=== PATIENT | female | born 1965 | race Caucasian/White ===

== ENCOUNTER 2024-01-22 19:21 | Emergency (ER) | payer SELFPAY ==
[2024-01-22 19:38] VITALS: BP 191/83; PULSE 64; RESP 20; TEMP 98.3; O2SAT 98
[2024-01-22] MEDS ORDERED: ZEMURON IV ONE ×2 (20:00→20:52)
[2024-01-22] MEDS ORDERED: TIOT18CA IH (20:05)
[2024-01-22] MEDS ORDERED: ESOM40CA PO (20:05)
[2024-01-22] MEDS ORDERED: INSU100I13 SQ (20:05)
[2024-01-22] MEDS ORDERED: HYDR200T72 PO (20:05)
[2024-01-22] MEDS ORDERED: SITA50TA PO (20:05)
[2024-01-22] MEDS ORDERED: RIZA10TA97 PO (20:05)
[2024-01-22] MEDS ORDERED: TOPI100T39 PO (20:05)
[2024-01-22] MEDS ORDERED: CEVI30CA7 PO (20:05)
[2024-01-22] MEDS ORDERED: DULO60CA8 PO (20:05)
[2024-01-22] MEDS ORDERED: MELA10TA PO (20:05)
[2024-01-22] MEDS ORDERED: LOSA100T15 PO (20:05)
[2024-01-22] MEDS ORDERED: METH-622 PO (20:05)
[2024-01-22] MEDS ORDERED: GABA600T7 PO (20:05)
[2024-01-22] MEDS ORDERED: LEVO75TA PO (20:05)
[2024-01-22] MEDS ORDERED: ESTR0.5T2 PO (20:05)
[2024-01-22] MEDS ORDERED: VERSED ONE ×2 (20:07→20:16)
[2024-01-22] MEDS ORDERED: SUBLIMAZE 100MCG/2ML ONE (20:07)
[2024-01-22] MEDS ORDERED: CLOP-28 PO (20:07)
[2024-01-22] MEDS ORDERED: METO-237 PO (20:07)
[2024-01-22] MEDS: VERSED IV STA ×3 (20:10→20:23)
[2024-01-22] MEDS: KEPPRA 100 ML IV STA (20:12)
[2024-01-22] MEDS ORDERED: KEPPRA 100 ML IV ONE (20:13)
[2024-01-22] MEDS: SUBLIMAZE 100MCG/2ML IV STA (20:14)
[2024-01-22] MEDS ORDERED: LASIX ONE (20:24)
[2024-01-22] MEDS: LASIX IV STA (20:24)
[2024-01-22 20:25] VITALS: BP 161/121; PULSE 55; RESP 18; O2SAT 98
[2024-01-22 20:40] VITALS: BP 160/97; PULSE 74; RESP 18; O2SAT 100
[2024-01-22] MEDS ORDERED: TRANEXAMIC ACID IV ONE (20:48)
[2024-01-22] MEDS ORDERED: SODIUM CHLORIDE IV ONE (20:48)
[2024-01-22] MEDS: TRANEXAMIC ACID 1,000 MG in NS 100ML 100 ML IV SCH (20:50)
[2024-01-22 20:54] LABS: HEMATOCRIT(ML) 32.8 % (36.0-46.0); HEMOGLOBIN 11.1 g/dL (12.0-15.0); MEAN CORP HGB 33.6 pg (26-34); MEAN CORP HGB CONCENTRATION 33.8 g/dL (33-36.5); MEAN CORP VOLUME 99.4 fL (78-100); RED BLOOD CELL 3.3 10^6/uL (4.00-5.20); RED CELL DISTRIBUTION WIDTH 13.2 % (11.5-14.5); WHITE BLOOD CELL 16.8 10^3/uL (4.5-11.0)
[2024-01-22 21:09] LABS: ALBUMIN(ML) 3.9 g/dL (3.4-5.0); ALBUMIN/GLOBULIN RATIO 1.56; ANION GAP 13.7; BUN/CREATININE RATIO 12.21 (10.0-20.0); CALCIUM 8.8 mg/dL (8.4-10.5); CARBON DIOXIDE 23.7 mmol/L (20.0-32); CREATININE SERUM 1.31 mg/dL (0.59-1.40); EST GFR, NON-AA 41.7 (>/=60); POTASSIUM 4.4 mmol/L (3.6-5.2)
== END 2024-01-22 20:45 | disposition short-term general hospital (02) ==
LOC: ER 19:21
DX: S06.6XAA Traumatic subarachnoid hemorrhage with loss of consciousness status unknown, initial encounter (principal); Z88.0 Allergy status to penicillin; Z88.1 Allergy status to other antibiotic agents; Z88.2 Allergy status to sulfonamides; Z88.5 Allergy status to narcotic agent; W19.XXXA Unspecified fall, initial encounter; Y93.89 Activity, other specified; Y92.89 Other specified places as the place of occurrence of the external cause; Y99.8 Other external cause status
CPT/HCPCS: 99291; 70486; 31500; 96365; 71045 ×2; 96375; 70450; 72125; 72128; 72131; 80053; 85027; 36415; 84484; 85610; 85730; J3490; J1953; J1940; J2250 ×2; J3010; 81025